=== PATIENT | male | born 1955 | race Caucasian/White ===

== ENCOUNTER 2017-11-01 05:31 | Day surgery (SDC) | payer BC, OTHER ==
[2017-11-01] MEDS ORDERED: fentaNYL 100 MCG/2 ML SDV IV ONE ×3 (05:32→06:33)
[2017-11-01] MEDS ORDERED: Midazolam 1 MG/ML 2 ML SDV IV ONE ×5 (05:32→06:37)
[2017-11-01] MEDS ORDERED: Sodium Chloride 0.9% 10 ML Syringe FLUSH PRN (06:00)
[2017-11-01] MEDS ORDERED: Dextrose 5%-0.45% NaCl 1,000 ML IV SCH (06:00)
[2017-11-01] MEDS ORDERED: Midazolam 1 MG/ML 2 ML SDV ONE (06:15)
[2017-11-01] MEDS ORDERED: fentaNYL 100 MCG/2 ML SDV ONE (06:16)
--- NOTE | 2017-11-01 08:09 | OR ---
DATE: 11/01/2017 PROCEDURES: Total colonoscopy, NBI, cold snare polypectomy, and multiple pinch biopsies. INSTRUMENT USED: CF-H180AL Olympus video colonoscope. PREMEDICATIONS: Fentanyl 100 mcg intravenous, Versed 3 mg intravenous. Nasal 2 L O2 cannula. The procedure was done under pulse oximetry, BP recording, and surveillance monitor. INDICATION: Screening colonoscopic examination is done for detection of any polypoid lesions and removal, endoscopic hemostasis therapy if needed. DESCRIPTION OF PROCEDURE: Initial rectal exam showed BPH. Rigid anoscopy was unremarkable. The colonoscope was passed with ease up to the ileocecal area. Photographs were taken of the normal-appearing cecum identified by landmarks of appendiceal orifice and double-bulged ileocecal folds. No bleeding was noted from any of the visualized areas at the commencement of the examination. No stricture. No vascular ectasia. No large isolated ulcerations seen. No evidence of diffuse inflammatory bowel disease in the form of friability, contact bleeding, or ulcerations. In the mid ascending colon, 1-cm sized benign- appearing submucosal lesion noted. NBI views were obtained. Numerous pinch biopsies were obtained and sent for histopathology. Photographs were taken. Probing the proximal sides of folds and flexures, using adequate distention and clearing of the stool material, withdrawal of the scope was made. In the proximal sigmoid colon, 5 mm sized, benign-appearing polyp was noted. NBI views were obtained. Photographs were taken. Cold snare polypectomy was done. The tissue was retrieved and sent to histopathology. No bleeding was noted from any of the visualized areas at the completion of examination. IMPRESSION: Colonic polyps. The patient tolerated the procedure well. [facility] /[id number]
== END 2017-11-01 09:03 | disposition home or self-care (01) ==
LOC: DL.ENDO 05:31
PROVIDERS: ATTEND Internal Medicine Gastroenterology
DX: Z12.11 Encounter for screening for malignant neoplasm of colon (principal); K63.5 Polyp of colon; E11.9 Type 2 diabetes mellitus without complications; I10 Essential (primary) hypertension; E66.09 Other obesity due to excess calories; E53.8 Deficiency of other specified B group vitamins; Z79.899 Other long term (current) drug therapy; Z98.890 Other specified postprocedural states
CPT/HCPCS: 45380; 45385; J2250; J3010; J7042

== ENCOUNTER 2020-08-30 09:53 | Emergency (ER) | payer OTHER ==
--- NOTE | 2020-08-30 10:17 | EDM.PDOC ---
ED HPI GENERAL MEDICAL PROBLEM - General Chief Complaint: Back Pain or Injury Stated Complaint: AMBULANCE Time Seen by Provider: 08/30/20 09:55 Source of Information: Reports: Patient History Limitations: Reports: No Limitations - History of Present Illness INITIAL COMMENTS - FREE TEXT/NARRATIVE: This 65 yo male patient was brought to the ED by [facility] due to a ground level fall. The patient was picked up in the [facility] parking lot after slipping on the ice and hitting his head. The patient denies any history of loss of consciousness. The patient reports some tenderness to the back of his head, posterior neck and right upper back (below right scapula). The patient did not arrive with a C-collar in-place. Onset: Today Duration: Minutes: Location: Reports: Head, Neck, Back Quality: Reports: Ache, Sharp, Stabbing Severity: Moderate Improves with: Reports: None Worsens with: Reports: None Context: Reports: Other Associated Symptoms: Reports: No Other Symptoms Bilateral Upper Back Pain Score (Numeric/FACES): 8 - Related Data Allergies Allergy/AdvReac Type Severity Reaction Status Date / Time lisinopril Allergy Cough Verified 08/30/20 09:54 Home Meds: Home Meds Acetaminophen [Tylenol Extra Strength] 1 tab PO ASDIRECTED 10/31/17 [History] Aspirin [Adult Low Dose Aspirin EC] 1 tab PO DAILY 10/31/17 [History] Cyanocobalamin (Vitamin B-12) [Cyanocobalamin Injection] 1,000 mcg IM .Q30DAY 10/31/17 [History] Gabapentin [Neurontin] 300 mg PO BID 10/31/17 [History] Insulin Aspart [NovoLOG] 3 - 8 units SQ TID 10/31/17 [History] Insulin Glarg,Human.Rec.Analog [Lantus Solostar] 38 units SQ BEDTIME 10/31/17 [History] Losartan [Cozaar] 100 mg PO DAILY 10/31/17 [History] Simvastatin 1 tab PO DAILY 10/31/17 [History] amLODIPine Besylate [Amlodipine Besylate] 10 mg PO BEDTIME 10/31/17 [History] metFORMIN HCl [Metformin HCl] 500 mg PO BID 10/31/17 [History] hydroCHLOROthiazide [Hydrochlorothiazide] 12.5 mg PO DAILY 08/30/20 [History] Past Medical History HEENT History: Reports: None, Other (See Below) Other HEENT History: full set of dentures Cardiovascular History: Reports: High Cholesterol, Hypertension Respiratory History: Reports: None Gastrointestinal History: Reports: None Genitourinary History: Reports: None Musculoskeletal History: Reports: Arthritis Neurological History: Reports: None Psychiatric History: Reports: None Endocrine/Metabolic History: Reports: Diabetes, Type II, Obesity/BMI 30+ Hematologic History: Reports: B12 Deficiency Immunologic History: Reports: None Oncologic (Cancer) History: Reports: None Dermatologic History: Reports: None - Infectious Disease History Infectious Disease History: Reports: Chicken Pox, Measles, Mumps - Past Surgical History Head Surgeries/Procedures: Reports: None HEENT Surgical History: Reports: None Cardiovascular Surgical History: Reports: None GI Surgical History: Reports: None Male Surgical History: Reports: None Endocrine Surgical History: Reports: None Social & Family History - Family History Family Medical History: No Pertinent Family History - Caffeine Use Caffeine Use: Reports: Soda Other Caffeine Use: 1.5 12 oz cans daily ED ROS GENERAL - Review of Systems Review Of Systems: Comprehensive ROS is negative, except as noted in HPI. ED EXAM, UPPER BACK/NECK PAIN - Physical Exam Exam: See Below Exam Limited By: No Limitations General Appearance: Alert, WD/WN, No Apparent Distress Eye Exam: Bilateral Eye: EOMI, Normal Inspection, PERRL Ears Exam: Normal External Exam, Normal Canal, Hearing Grossly Normal, Normal TMs Nose Exam: Normal Inspection, Normal Mucousa, No Blood Throat/Mouth Exam: Normal Inspection, Normal Lips, Normal Teeth, Normal Gums, Normal Oropharynx, Normal Voice, No Airway Compromise Head Exam: Atraumatic, Normocephalic Neck Exam: Tenderness (diffuse) Nexus Criteria: No: Evidence of Intoxication, Altered Level of Consciousness, Focal Neurological Deficit, Painful Distraction Injuries Cardiovascular/Respiratory: Regular Rate, Rhythm, No M/R/G, Normal Peripheral Pulses, No JVD, Normal Breath Sounds, No Respiratory Distress GI/Abdominal: Normal Bowel Sounds, Soft, Non-Tender, No Organomegaly, No Distention, No Abnormal Bruit, No Mass (Male) Exam: Deferred Rectal (Males) Exam: Deferred Back Exam: Paraspinal Tenderness (upper left) Extremities: Normal Inspection, Normal Range of Motion, Non-Tender, No Pedal Edema, Normal Capillary Refill 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 As Tested, No Motor/Sensory Deficits, Alert, Normal Mood/Affect, Oriented x 3 Psychiatric: Normal Affect, Normal Mood Skin Exam: Normal Color, Warm/Dry Lymphatic: No Adenopathy Course - Vital Signs Last Recorded V/S: Last Vital Signs Temp 36.1 C 08/30/20 09:54 Pulse 85 08/30/20 09:54 Resp 14 08/30/20 09:54 BP 166/69 H 08/30/20 09:54 Pulse Ox 97 08/30/20 09:54 - Orders/Labs/Meds Meds: Medications Discontinued Medications Generic Name Dose Route Start Last Admin Trade Name Leanna PRN Reason Stop Dose Admin Ketorolac Tromethamine 30 mg 08/30/20 12:18 Toradol IM 08/30/20 12:19 ONETIME ONE Departure - Departure Time of Disposition: 12:21 Disposition: Home, Self-Care 01 Condition: Fair Clinical Impression: Muscle strain of upper back, Fall from ground level - Discharge Information *PRESCRIPTION DRUG MONITORING PROGRAM REVIEWED*: Not Applicable *COPY OF PRESCRIPTION DRUG MONITORING REPORT IN PATIENT ELLEN: Not Applicable Instructions: Muscle Strain, [id number] Forms: ED Department Discharge Care Plan Goals: The patient was advised of the examination results during the visit. The patient was given an injection of Toradol (30 mg) while in the ED. The patient was discharged with scripts for Toradol (10 mg) #20 to take 1 by mouth every 6 hours and Flexeril (10 mg) #20 to take 1 by mouth at bedtime as needed. If the patient has any additional symptoms or concerns, the patient should either return to the emergency department or visit his primary care facility. Sepsis Event Note (ED) - Evaluation Sepsis Screening Result: No Definite Risk - Focused Exam Vital Signs: Vital Signs Temp Pulse Resp BP Pulse Ox 08/30/20 09:54 36.1 C 85 14 166/69 H 97
--- NOTE | 2020-08-30 11:00 | CT ---
PROCEDURE INFORMATION: Exam: CT Head Without Contrast Exam date and time: 08/30/2020 10:21 AM Age: 65 years old Clinical indication: Injury or trauma; Fall; Blunt trauma (contusions or hematomas); Without loss of consciousness; Additional info: Ground level fall TECHNIQUE: Imaging protocol: Computed tomography of the head without contrast. Radiation optimization: All CT scans at this facility use at least one of these dose optimization techniques: automated exposure control; mA and/or kV adjustment per patient size (includes targeted exams where dose is matched to clinical indication); or iterative reconstruction. COMPARISON: No relevant prior studies available. FINDINGS: Brain: The brain demonstrates diffuse volume loss. There is white matter hypodensity most consistent with chronic small vessel ischemic change. No visible evolving territorial infarct. No hemorrhage. Cerebral ventricles: The ventricles are mildly enlarged probably reflecting volume loss. Bones/joints: Unremarkable. No acute fracture. Paranasal sinuses: Visualized sinuses are unremarkable. No fluid levels. Mastoid air cells: Visualized mastoid air cells are well aerated. Soft tissues: Unremarkable. IMPRESSION: No acute intracranial abnormality seen.
--- NOTE | 2020-08-30 11:07 | CT ---
PROCEDURE INFORMATION: Exam: CT Cervical Spine Without Contrast Exam date and time: 08/30/2020 10:21 AM Age: 65 years old Clinical indication: Injury or trauma; Fall; Blunt trauma; Additional info: Ground level fall TECHNIQUE: Imaging protocol: Computed tomography images of the cervical spine without contrast. Radiation optimization: All CT scans at this facility use at least one of these dose optimization techniques: automated exposure control; mA and/or kV adjustment per patient size (includes targeted exams where dose is matched to clinical indication); or iterative reconstruction. COMPARISON: No relevant prior studies available. FINDINGS: Bones/joints: Mild exaggeration of the cervical lordosis. No acute fracture seen. Mild T3 superior endplate height loss, likely chronic. Discs/Spinal canal/Neural foramina: Moderate degenerative changes at C1-C2. No high-grade cervical disc height loss. Mild uncovertebral arthropathy at several levels. Moderate prevertebral spondylosis at C5-C6 and C6-C7. The C4-C5 disc space is developmentally hypoplastic. No severe central spinal canal stenoses. Neural foraminal stenoses at several levels due to uncovertebral and facet arthropathy, for example on the left at C3-C4. Lungs: Lung apices are normal. Soft tissues: Unremarkable. Nuchal ligament calcification. IMPRESSION: No cervical spine fracture seen.
--- NOTE | 2020-08-30 11:08 | CT ---
PROCEDURE INFORMATION: Exam: CT Chest Without Contrast; Diagnostic Exam date and time: 08/30/2020 10:21 AM Age: 65 years old Clinical indication: Injury or trauma; Fall; Blunt trauma (contusions or hematomas); Additional info: Ground level fall TECHNIQUE: Imaging protocol: Diagnostic computed tomography of the chest without contrast. Radiation optimization: All CT scans at this facility use at least one of these dose optimization techniques: automated exposure control; mA and/or kV adjustment per patient size (includes targeted exams where dose is matched to clinical indication); or iterative reconstruction. COMPARISON: CT Chest wo Cont 01/10/2019 1:13 PM FINDINGS: Thyroid: Questionable subtle 7 mm slightly hypodense nodule in the left thyroid lobe on series 17, image 4, a subtle finding not well seen on the prior study. Minimal hypodensity in the inferior aspect of both thyroid lobes may be related to beam hardening artifact rather than small hypodense nodules. Lungs: There are stable scattered subcentimeter nodules in the lungs bilaterally. The largest on the right measures 9 mm in the right middle lobe on series 19, image 31. The largest on the left is in the lingula measuring 6 mm on series 19, image 39. Mild posterior dependent atelectasis in the lower lobes bilaterally. No pneumonia or pulmonary edema. More remote comparison study CT chest 02/18/2018 is unavailable on PACs but has been requested. Pleural space: Unremarkable. No pneumothorax. No pleural effusion. Heart: At least moderate atherosclerotic calcification in the left anterior descending and proximal circumflex coronary arteries Aorta: There is atherosclerotic calcification of the thoracic aorta and branching great vessels off the aortic arch. Additional atherosclerotic changes are seen in the upper abdominal aorta. Lymph nodes: There are small nonenlarged bilateral axillary lymph nodes. Bones/joints: Degenerative disc disease in the lower cervical spine. Degenerative change at the right acromioclavicular joint. Small amount of hydroxyapatite deposition at the right rotator cuff with minimal hypertrophic changes at the right greater tuberosity. Small sclerotic lesion in the right humeral head, most likely a bone island in the absence of a known primary tumor. Multilevel degenerative disc disease in the thoracic and upper lumbar spine. No acute fracture is seen. There is exaggeration of the normal thoracic kyphosis. No subluxation. Soft tissues: Unremarkable. IMPRESSION: 1. No acute posttraumatic abnormality seen in the chest. 2. Scattered sub cm pulmonary nodules measuring up to 9 mm on the right and up to 6 mm on the left, unchanged since the only available comparison study from 01/10/2019. If the older comparison study from 02/18/2018 becomes available for review, an addendum can be added to this report. Given stability for at least 1 year 6 months, these are most likely post infectious or post inflammatory benign pulmonary nodules. For patients at low risk (minimal or absent history of smoking and of other known risk factors), or at high risk (history of smoking or of other known risk factors), stability at 18 months after the oldest available comparison study (01/10/2019) is suggestive of benign nature, but CT chest at 24 months from the oldest comparison study could be considered for confirmation. (Reference: Oz) 3. Questionable subtle 7 mm hypodense nodule in the left thyroid lobe, a subtle finding not well visualized on the comparison study. References: Oz Sparks, et al. Guidelines for Management of Incidental Pulmonary Nodules Detected on CT Images: From the Fleischner Society 2017. Radiology. 2017;284(1):228-243. COMMENTS: Consistent with the [employer]'s Incidental Findings Committee white paper (J Am Lester Radiol 2015): In patients aged 35 years and older with an incidental thyroid nodule equal to or greater than 1.[address], MRI or extrathyroidal US, further evaluation with dedicated thyroid US is recommended for patients with normal life expectancy and without comorbidities. For smaller nodules without suspicious features, no further evaluation or follow up is recommended.
--- NOTE | 2020-08-30 11:33 | CT ---
PROCEDURE INFORMATION: Exam: CT Thoracic Spine Without Contrast Exam date and time: 08/30/2020 10:21 AM Age: 65 years old Clinical indication: Injury or trauma; Fall; Blunt trauma (contusions or hematomas); Additional info: Ground level fall TECHNIQUE: Imaging protocol: Computed tomography images of the thoracic spine without contrast. Radiation optimization: All CT scans at this facility use at least one of these dose optimization techniques: automated exposure control; mA and/or kV adjustment per patient size (includes targeted exams where dose is matched to clinical indication); or iterative reconstruction. COMPARISON: 1. CT - Chest wo Cont 08/30/2020 10:21:[address] - Chest wo Cont 01/10/2019 1:13:56 PM FINDINGS: Vertebrae: No paravertebral hematoma. There are diffuse enthesopathic changes consistent with benign diffuse idiopathic skeletal hyperostosis (DISH), with flowing ossification along the anterior longitudinal ligament bridging at least three levels. There is multilevel mild degenerative facet disease in the lower thoracic spine, more pronounced in the upper lumbar spine. T1-T2: No significant disc protrusion. No severe spinal canal stenosis. No significant neural foraminal narrowing. T2-T3: No significant disc protrusion. No severe spinal canal stenosis. No significant neural foraminal narrowing. T3-T4: At T3-T4, there is pronounced ligamentous and ligamentum flavum ossification posteriorly at midline in the spinal canal, but this does not produce severe central canal narrowing. No neural foraminal narrowing at this level. T4-T5: At T4-T5, there is pronounced ligamentous and ligamentum flavum ossification posteriorly at midline in the spinal canal, but this does not produce severe central canal narrowing. No neural foraminal narrowing at this level. T5-T6: No significant disc protrusion. No severe spinal canal stenosis. No significant neural foraminal narrowing. T6-T7: No significant disc protrusion. No severe spinal canal stenosis. No significant neural foraminal narrowing. T7-T8: No significant disc protrusion. No severe spinal canal stenosis. No significant neural foraminal narrowing. T8-T9: No significant disc protrusion. No severe spinal canal stenosis. No significant neural foraminal narrowing. T9-T10: No significant disc protrusion. No severe spinal canal stenosis. No significant neural foraminal narrowing. T10-T11: No significant disc protrusion. No severe spinal canal stenosis. No significant neural foraminal narrowing. T11-T12: No significant disc protrusion. No severe spinal canal stenosis. No significant neural foraminal narrowing. T12-L1: No significant disc protrusion. No severe spinal canal stenosis. No significant neural foraminal narrowing. Other bones/joints: There is subtle old fracture deformity of the left 5th anterior rib. There are rudimentary ribs bilaterally at L1, smaller on the right. There is multilevel degenerative disc disease in the thoracic and lower cervical spine. There is exaggeration of the normal thoracic kyphosis. No subluxation. No acute fracture. No subluxation. Pleural space: For findings within the thoracic cavity, including the heart, lungs, pleural space, mediastinum, and vasculature, and also including the thyroid, please refer to report for CT chest also performed today. Kidneys and ureters: 1.4 cm simple cyst is seen in the mid left kidney. Other findings: Atherosclerotic calcification in the upper abdominal aorta and medium-sized vessels in the upper abdomen. IMPRESSION: 1. No acute fracture. 2. Multilevel degenerative changes in the thoracic, lower cervical, and upper lumbar spine. 3. Rudimentary ribs bilaterally at L1 with transitional anatomy. 4. 1.4 cm simple cyst in the left kidney. No further imaging follow-up recommended for this finding. 5. For findings within the thoracic cavity, including the heart, lungs, pleural space, mediastinum, and vasculature, and also including the thyroid, please refer to report for CT chest also performed today. COMMENT: Consistent with the [employer]'s Incidental Findings Committee Report (J Am Lester Radiol 2010): Unless the patient's specific circumstances suggest otherwise, any liver lesion 0.5 cm or less, any cystic kidney lesion less than 1.0 cm, and/or any adrenal lesion 1.0 cm or less not otherwise characterized in this report as possessing suspicious or indeterminate imaging features is/are highly likely to be benign and do not require follow-up imaging or biopsy.
[2020-08-30] MEDS ORDERED: Ketorolac 30 MG/ML SDV IM ONE (12:18)
== END 2020-08-30 12:45 | disposition home or self-care (01) ==
LOC: DL.ED 09:53
DX: S29.012A Strain of muscle and tendon of back wall of thorax, initial encounter (principal); I10 Essential (primary) hypertension; E78.00 Pure hypercholesterolemia, unspecified; M19.90 Unspecified osteoarthritis, unspecified site; E11.9 Type 2 diabetes mellitus without complications; E66.9 Obesity, unspecified; Z88.8 Allergy status to other drugs, medicaments and biological substances; Z79.82 Long term (current) use of aspirin; Z79.899 Other long term (current) drug therapy; Z79.4 Long term (current) use of insulin; W00.0XXA Fall on same level due to ice and snow, initial encounter; Y92.481 Parking lot as the place of occurrence of the external cause
CPT/HCPCS: 70450; 71250; 72125; 72128; 96372; 99284; J1885; 99283